=== PATIENT | female | born 1990 | race Caucasian/White ===

== ENCOUNTER 2023-10-14 21:51 | Emergency (ER) | payer BC, OTHER ==
[2023-10-14] MEDS ORDERED: Bupivacaine 0.25% 10 ML VIAL ONE (22:53)
[2023-10-14] MEDS ORDERED: Bacitracin 1 PK ONE (23:45)
== END 2023-10-15 00:10 | disposition home or self-care (01) ==
LOC: ERS 21:51
DX: S61.214A Laceration without foreign body of right ring finger without damage to nail, initial encounter (principal); S61.212A Laceration without foreign body of right middle finger without damage to nail, initial encounter; W25.XXXA Contact with sharp glass, initial encounter
CPT/HCPCS: 12002; 99282; J0665